=== PATIENT | male | born 1935 | race African-American/Black ===

== ENCOUNTER 2017-06-11 14:03 | Outpatient (CLI) | payer MEDICARE ==
--- NOTE | 2017-06-11 18:58 | CT ---
HEAD CT WITHOUT CONTRAST: Date: 06/11/17 COMPARISON: 05/21/17. HISTORY: Re-evaluate subdural hematoma. TECHNIQUE: Serial axial CT imaging at 4.5 mm intervals from vertex through skull base without contrast. FINDINGS: There is an old fracture involving the lateral orbital wall on the left. There is also old fracture o f the anterior left maxillary sinus wall. 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 This has decreased in volume when compared to the 05/21/17 exam. Since that prior exam, there durand s been removal of a right-sided subdural drain. The subdural hematoma of mixed density on the right m easures up to 1.1 cm in short axis dimension in the inferior right frontal region, previously measuri ng in the 1.4 cm region in this region. No new hematoma is identified within the right subdural regio n. No intra-axial hemorrhage. There is a focal area of scalp swelling in the left supraorbital region , improved. There is extensive periventricular hypodensity suggesting small vessel disease. There is no significant midline shift noted. Calvarial bur holes are noted on the right. IMPRESSION: Subdural hematoma on the right extending from axial level of third ventricle through axial level of v ertex. It has decreased in volume since the 05/21/17 exam. No significant midline shift. No new intra cranial hemorrhage. Follow-up to resolution is suggested. POS: [facility]
== END 2017-06-11 14:04 | disposition home or self-care (01) ==
LOC: TBSIIMAG 14:03
PROVIDERS: ATTEND Surgery
DX: I62.03 Nontraumatic chronic subdural hemorrhage (principal)
CPT/HCPCS: 70450